=== PATIENT | male | born 1995 | race Caucasian/White ===

== ENCOUNTER 2017-06-04 10:35 | Outpatient (CLI) | payer OTHER ==
--- NOTE | 2017-06-04 13:12 | ULT ---
ABDOMINAL ULTRASOUND: HISTORY: Abdominal pain and constipation. FINDINGS: Real-time images of the upper abdomen demonstrate a normal appearing gallbladder. The common duct is 3 mm. The technologist reports a negative ultrasound Holman sign. The liver is normal in size and appearance. No masses. The spleen measures 11 cm. The right and le ft kidneys are within normal limits in size and not obstructed. The pancreas is partially obscured. The abdominal aorta and IVC regions are unremarkable. IMPRESSION: Unremarkable abdomen ultrasound. POS: [facility]
== END 2017-06-04 10:36 | disposition home or self-care (01) ==
LOC: ULT 10:35
PROVIDERS: ATTEND Family Medicine
DX: K59.00 Constipation, unspecified (principal); R10.30 Lower abdominal pain, unspecified
CPT/HCPCS: 76700

== ENCOUNTER 2019-11-23 14:51 | Emergency (ER) | payer BC, OTHER ==
[2019-11-23 15:51] LABS: #Basophils 0.1 thou/uL (0.0-0.2); #Eosinphils 0.2 thou/uL (0.0-0.7); #Lymphocytes 2.3 thou/uL (1.20-3.40); #Monocytes 0.4 thou/uL (0.11-0.59); #Neutrophils 2.8 thou/uL (1.40-6.50); %Basophils 1.1 % (0.0-1.0); %Eosinophils 2.9 % (0.0-10.0); %Lymphocytes 39.7 % (21.0-51.0); %Monocytes 7.2 % (0.0-10.0); %Neutrophils 49.1 % (42.0-75.0); Hemoglobin 14.8 g/dL (14.0-18.0); Mean Corpuscular HGB CONC 33.4 g/dL (32.0-36.0); Mean Corpuscular Hemoglobin 30.7 pg (27.0-31.0); Mean Platelet Volume 8.3 fL (7.4-10.4); Platelet Count 282 thou/uL (130-400); RBC Distribution Width 11.8 % (11.5-14.5); White Blood Cell (WBC) Count 5.7 thou/uL (4.8-10.8)
[2019-11-23] MEDS ORDERED: Lidocaine Viscous Sol 2% 15 ml UD Cup ONE (16:03)
[2019-11-23] MEDS ORDERED: Ondansetron PF 4 MG/2 ML Vial ONE (16:03)
[2019-11-23] MEDS ORDERED: Mag-Al 1200 mg/1200 mg/30 ML UDCUP ONE (16:03)
[2019-11-23] MEDS ORDERED: Ondansetron ODT 4 MG TAB ONE (16:05)
[2019-11-23 16:14] LABS: ALT (SGPT) 19 U/L (8-55); AST (SGOT) 18 U/L (5-34); Albumin 4.9 g/dL (3.5-5.0); Alkaline Phosphatase 90 U/L (40-110); Anion Gap 13 mmol/L (10-20); BUN (Urea Nitrogen) 13 mg/dL (8.9-20.6); Bilirubin, Total 0.6 mg/dL (0.2-1.2); Calc. Creatinine Clearance 0 mL/min (70-130); Calcium 9.6 mg/dL (7.8-10.44); Carbon Dioxide 27 mmol/L (22-29); Chloride 103 mmol/L (98-107); Estimated GFR-MDRD Greater than 90; Globulin 2.9 g/dL (2.4-3.5); Glucose 92 mg/dL (70-105); Lipase 16 U/L (8-78); Protein, Total 7.8 g/dL (6.0-8.3); Sodium 139 mmol/L (136-145)
[2019-11-23] MEDS ORDERED: Ketorolac Tromethamine 30 MG/ML VIAL ONE (17:47)
[2019-11-23 17:49] LABS: Bilirubin Negative (Negative); Blood, Urine Negative (Negative); Clarity Clear (Clear); Glucose, Urine (Dipstick) Normal (Negative); Ketone, Urine Trace mg/dL (Negative); Leukocyte Negative Leu/uL (Negative); Nitrite Negative (Negative); Protein, Urine (Dipstick) 10 mg/dL (Neg-Trace); Urobilinogen Normal mg/dL (Less than 2); pH, Urine 7.5 (5.0-9.0)
--- NOTE | 2019-11-23 20:56 | ULT ---
GALLBLADDER ULTRASOUND: 11/23/19 INDICATIONS: Abdominal pain. The gallbladder has a normal sonographic appearance. No evidence of gallstones. Common bile duct is normal caliber. The visualized liver, pancreas, and right kidney appear unremarkable. IMPRESSION: Unremarkable gallbladder ultrasound. POS: [id number]
== END 2019-11-23 18:08 | disposition home or self-care (01) ==
LOC: ERS 14:51
DX: R10.11 Right upper quadrant pain (principal); Z87.891 Personal history of nicotine dependence; Z79.899 Other long term (current) drug therapy
CPT/HCPCS: 36415; 76705; 80053; 81003; 83690; 85025; 96372; J1885; J2405; Q0162

== ENCOUNTER 2020-07-19 20:42 | Emergency (ER) | payer BC ==
[2020-07-19 21:12] LABS: #Basophils 0.1 thou/uL (0.0-0.2); #Eosinphils 0.2 thou/uL (0.0-0.7); #Lymphocytes 2.4 thou/uL (1.20-3.40); #Monocytes 0.7 thou/uL (0.11-0.59); #Neutrophils 7.7 thou/uL (1.40-6.50); %Basophils 0.7 % (0.0-1.0); %Monocytes 6.1 % (0.0-10.0); %Neutrophils 69.2 % (42.0-75.0); Hemoglobin 14.7 g/dL (14.0-18.0); Mean Corpuscular HGB CONC 34.4 g/dL (32.0-36.0); Mean Corpuscular Hemoglobin 31.5 pg (27.0-31.0); Mean Corpuscular Volume 91.7 fL (78.0-98.0); Platelet Count 270 thou/uL (130-400); RBC Distribution Width 11.4 % (11.5-14.5); Red Blood Cell (RBC) Count 4.66 mill/uL (4.70-6.10)
[2020-07-19 21:33] LABS: ALT (SGPT) 16 U/L (8-55); AST (SGOT) 16 U/L (5-34); Albumin 4.5 g/dL (3.5-5.0); Alkaline Phosphatase 92 U/L (40-110); Anion Gap 13 mmol/L (10-20); BUN (Urea Nitrogen) 14 mg/dL (8.9-20.6); Bilirubin, Total 0.8 mg/dL (0.2-1.2); CK (CPK) 68 U/L (30-200); Calc. Creatinine Clearance 0 mL/min (70-130); Calcium 9.3 mg/dL (7.8-10.44); Carbon Dioxide 25 mmol/L (22-29); Chloride 105 mmol/L (98-107); Globulin 2.8 g/dL (2.4-3.5); Glucose 132 mg/dL (70-105); Lipase 18 U/L (8-78); Potassium 3.7 mmol/L (3.5-5.1); Protein, Total 7.3 g/dL (6.0-8.3); Sodium 139 mmol/L (136-145)
[2020-07-19 21:35] LABS: Alcohol Less than 10 mg/dL (Less than 10); Salicylate Less than 8.0 mg/dL (15.0-30.0)
[2020-07-19] MEDS ORDERED: Metoclopramide 10 MG/10 ML UDCUP ONE (21:41)
[2020-07-19] MEDS ORDERED: Ketorolac Tromethamine 30 MG/ML VIAL ONE (21:41)
[2020-07-19] MEDS ORDERED: Metoclopramide HCl 10 MG/2 ML VIAL ONE (21:41)
[2020-07-19] MEDS ORDERED: diphenhydrAMINE 50 MG/ML VIAL ONE (21:41)
[2020-07-19 23:08] LABS: Amphetamine Not Detected (NotDetected); Barbiturates Screen Not Detected (NotDetected); Benzodiazepine Screen Not Detected (NotDetected); Cocaine Metabolite Screen Not Detected (NotDetected); Medtox Control Line Valid? VALID (VALID); Medtox Reader # READER 1; Methadone Not Detected (NotDetected); Methamphetamine Not Detected (NotDetected); Opiate Screen Not Detected (NotDetected); Oxycodone Screen Not Detected (NotDetected); Phencyclidine (PCP) Not Detected (NotDetected); THC/Cannabinoid Screen Not Detected (NotDetected); Tricyclic Screen Not Detected (NotDetected)
== END 2020-07-19 23:28 ==
LOC: ERS 20:42
DX: R07.9 Chest pain, unspecified (principal); R93.89 Abnormal findings on diagnostic imaging of other specified body structures; M79.622 Pain in left upper arm; K21.9 Gastro-esophageal reflux disease without esophagitis; F17.220 Nicotine dependence, chewing tobacco, uncomplicated; Z79.899 Other long term (current) drug therapy; M79.605 Pain in left leg
CPT/HCPCS: 36415; 70450; 71046; 80053; 80306; 80307; 82550; 83690; 84484; 85025; 93005; 96365; 96375; J1200; J1885; J2765